=== PATIENT | female | born 1960 | race Caucasian/White ===

== ENCOUNTER 2019-06-05 18:31 | Emergency (ER) | payer SELFPAY ==
--- NOTE | 2019-06-05 18:58 | ED Physician Documentation ---
General Adult - HISTORIAN Historian: patient - HPI Stated Complaint: fall, hip pain Chief Complaint: General Adult Onset: days ago Timing: still present Severity: moderate Further Comments: yes (Pt is a 59 yo female who fell through her porch 2 days ago and landed on her L hip. Pt has bruising of L buttock. Pain is much worse with weight bearing, though she is able to ambulate a little.) - ROS CONST: no problems EYES/ENT: none CVS/RESP: none MS/SKIN/LYMPH: other (L hip pain) - PAST HX Past History: asthma, COPD, other (seizures) Allergies/Adverse Reactions: Allergies Allergy/AdvReac Type Severity Reaction Status Date / Time acetaminophen Allergy Verified 06/05/19 19:01 [From Tylenol-Codeine #3] amoxicillin Allergy Verified 06/05/19 19:01 codeine Allergy Verified 06/05/19 19:01 [From Tylenol-Codeine #3] erythromycin base Allergy Verified 06/05/19 19:01 Iodinated Contrast Media Allergy Verified 06/05/19 19:01 Penicillins Allergy Verified 06/05/19 19:01 - SOCIAL HX Smoking History: cigarettes - FAMILY HX Family History: No - REVIEWED ASSESSMENTS Nursing Assessment Reviewed: Yes Vitals Reviewed: Yes Progress - Progress Progress: X-ray R hip/pelvis: neg. Rx [place] (5/325). Take one or two tablets by mouth every 4 to 6 hours as needed for moderate to severe pain. General Adult Physical Exam - PHYSICAL EXAM GENERAL APPEARANCE: moderate distress NECK: normal inspection, supple RESPIRATORY: no resp distress, chest non-tender, breath sounds normal CVS: reg rate & rhythm, heart sounds normal ABDOMEN: soft, no organomegaly, normal bowel sounds BACK: normal inspection, no CVA tenderness SKIN: other (patch of ecchymosis L buttock 15 cm) EXTREMITIES: other (tenderness L hip/buttock; inhibited full extension; DTR's intact) NEURO: oriented X3, motor nml, sensation nml Discharge Clincal Impression: fall, R hip pain Referrals: Karuna Rondon MD [Primary Care Provider] - Condition: Stable Disposition: HOME, SELF-CARE Decision to Admit: NO Decision Time: 20:01
[2019-06-05 18:59] VITALS: BP 112/46
--- NOTE | 2019-06-05 19:28 | Diagnostic Imaging Report ---
PATIENT MR#: [id number] PATIENT PATIENT NAME: ALEK TOBIN DATE OF : 1960 REFERRING PHYSICIAN: Dagoberto Porter EXAM DATE: 06/05/2019 ACCESSION NUMBER: [id number] EXAM DESCRIPTION: PELVIS AP 1 OR 2 VIEWS PELVIS AP 1 VIEW History: Fall x2 days ago, left hip pain Findings: The osseous structures are intact without acute fracture. The femoral heads are well seated within the respective acetabula. Sacroiliac joints are normal. There is no soft tissue swelling. Impression: 1. No acute osseous abnormality. Read by: Dr. Rui Pearson Transcribed by: Transcribed Date: Electronically signed by: Dr. Rui Pearson Date signed: 06/05/2019 7:28:08 PM
--- NOTE | 2019-06-05 19:29 | Diagnostic Imaging Report ---
PATIENT MR#: [id number] PATIENT PATIENT NAME: ALEK TOBIN DATE OF : 1960 REFERRING PHYSICIAN: Dagoberto Porter EXAM DATE: 06/05/2019 ACCESSION NUMBER: [id number] EXAM DESCRIPTION: LT HIP 2VIEW COMPLETE LT HIP 2VIEW COMPLETE History: Fall x2 days ago, left hip pain Findings: The osseous structures are intact without acute fracture. The joint space and alignment are normal. There is no soft tissue swelling. Impression: 1. No acute osseous abnormality. Read by: Dr. Rui Pearson Transcribed by: Transcribed Date: Electronically signed by: Dr. Rui Pearson Date signed: 06/05/2019 7:29:08 PM
[2019-06-05] MEDS: KETOROLAC TROMETHAMINE 60 MG/2 ML VIAL IM ONE (20:03)
== END 2019-06-05 20:13 | disposition home or self-care (01) ==
LOC: ED 18:31
DX: M25.551 Pain in right hip (principal); W19.XXXA Unspecified fall, initial encounter
CPT/HCPCS: 72170; 73502; 96372; 99284; J1885